=== PATIENT | female | born 1975 | race African-American/Black ===

== ENCOUNTER 2017-12-29 15:44 | Emergency (ER) | payer OTHER ==
--- NOTE | 2017-12-29 16:00 | PDOC ---
Rapid Medical Evaluation Time Seen by Provider: 12/29/17 15:58 Medical Evaluation: 12/29/17 15:58 I have performed a brief in-person evaluation of this patient. The patient presents with a chief complaint of: abdominal "bubbling, not really pain" x 1 week, intermittent, 3 episodes loose stools daily, denies vomiting, no meds taken Pertinent physical exam findings: well appearing, VSS I have ordered the following: nothing The patient will proceed to the ED for further evaluation. Discharge Disposition - Diagnosis Abdominal discomfort - Referrals - Patient Instructions - Post Discharge Activity
[2017-12-29 16:04] VITALS: BP 109/70; PULSE 73; TEMP 98; BMI 38.0
[2017-12-29] MEDS ORDERED: MAG HYDROX/AL HYDROX/SIMETH 30 ML UNIT-DOSE CUP PO ONE (16:40)
[2017-12-29] MEDS ORDERED: RANITIDINE HCL 150 MG TABLET (FP) PO ONE (16:41)
[2017-12-29] MEDS ORDERED: RANITIDINE HCL 150 MG TABLET (FP) ONE (16:45)
[2017-12-29] MEDS ORDERED: MAG HYDROX/AL HYDROX/SIMETH 30 ML UNIT-DOSE CUP ONE (16:45)
--- NOTE | 2017-12-29 16:45 | PDOC ---
History of Present Illness - General Chief Complaint: Diarrhea Stated Complaint: ABD PAIN, NAUSEA Time Seen by Provider: 12/29/17 15:58 History Source: Patient Exam Limitations: No Limitations - History of Present Illness Travel History: No Initial Comments: 12/29/17 16:40 42 yr female with c/o "bubbly stomach"after eating for 3 days no fever. pt has loose stool is eating and drinking well. no meds taken [employer] Timing/Duration: reports: intermittent Quality: reports: mild, cramping, fullness Abdominal Pain Onset Location: reports: generalized abdomen Past History - Past Medical History Allergies/Adverse Reactions: Allergies Allergy/AdvReac Type Severity Reaction Status Date / Time No Known Allergies Allergy Verified 12/29/17 15:58 Home Medications: Ambulatory Orders NK [No Known Home Medication] 12/29/17 COPD: No - Suicide/Smoking/Psychosocial Hx Smoking History: Never smoked Have you smoked in the past 12 months: No Information on smoking cessation initiated: No Hx Alcohol Use: No Drug/Substance Use Hx: No Substance Use Type: None Abd/GI Specific PMHX - Complaint Specific PMHX Colitis: No Diverticulitis: No Gall Bladder Disease: No GERD: No Hepatitis: No Irritable Bowel Synd (IBS): No Pancreatitis: No GI Ulcer Disease: No Review of Systems - Review of Systems Able to Perform ROS?: Yes Is the patient limited [place]ian proficient: No Constitutional: No: Symptoms Reported HEENTM: No: Symptoms Reported Respiratory: No: Symptoms reported Cardiac (ROS): No: Symptoms Reported ABD/GI: Yes: Symptoms Reported *Physical Exam - Vital Signs Last Vital Signs Temp Pulse Resp BP Pulse Ox 98 F 73 18 109/70 100 12/29/17 15:59 12/29/17 15:59 12/29/17 15:59 12/29/17 15:59 12/29/17 15:59 - Physical Exam General Appearance: Yes: Nourished, Appropriately Dressed HEENT: positive: EOMI, JASON Neck: positive: Supple. negative: Tender Respiratory/Chest: positive: Lungs Clear, Normal Breath Sounds. negative: Chest Tender Cardiovascular: positive: Regular Rhythm, Regular Rate Gastrointestinal/Abdominal: positive: Normal Bowel Sounds, Soft. negative: Tender Musculoskeletal: positive: Normal Inspection Extremity: positive: Normal Capillary Refill, Normal Inspection, Normal Range of Motion Integumentary: positive: Normal Color, Dry, Warm Neurologic: positive: sample supervisor II-XII NML intact, Fully Oriented, Alert, Normal Mood/ Affect Medical Decision Making - Medical Decision Making 12/29/17 16:43 cc: "bubbling in belly" for 3 days woth loose stool after eating no vomiting or nausea no fever, no back pain no urianry complaints pt denies pain to the abdomen, states it feels "gas like" non toxic stable vitals will give zantac and mylanta 12/29/17 16:54 pt is non toxic well appearing in no acute distress. pt to follow with her PMD or the gastroentrologist if symptoms worsen or persist *DC/Admit/Observation/Transfer Diagnosis at time of Disposition: Gas pain Gastritis Qualifiers: Gastritis type: unspecified gastritis Chronicity: acute Gastritis bleeding: without bleeding Qualified Code(s): K29.00 - Acute gastritis without bleeding - Discharge Dispostion Disposition: HOME Condition at time of disposition: Good - Referrals Referrals: ON STAFF,NOT [Primary Care Provider] - Aamir Simms MD [Staff Physician] - - Patient Instructions Additional Instructions: bland diet as tolerated white rice, toast applesauce, banana take mylanta as needed (over the counter) follow with the emergency service worker if symptoms worsen or persist Return if any worsening symptoms , bloody stool, vomiting or severe pain or any other concerns - Post Discharge Activity
== END 2017-12-29 17:02 | disposition home or self-care (01) ==
LOC: JERFT 15:44
DX: K29.00 Acute gastritis without bleeding (principal)
CPT/HCPCS: 99281-25

== ENCOUNTER 2019-05-21 17:56 | Emergency (ER) | payer BC, OTHER ==
[2019-05-21 18:07] VITALS: BP 112/72; PULSE 83; TEMP 98.3; BMI 37.8
--- NOTE | 2019-05-21 18:21 | PDOC ---
History of Present Illness - General Chief Complaint: Pain Stated Complaint: LEFT HIP/LEG PAIN Time Seen by Provider: 05/21/19 18:13 - History of Present Illness Initial Comments: 05/21/19 18:19 43-year-old female without comorbidities presents for evaluation of 2 weeks of atraumatic left lower extremity pain without systemic symptoms Past History - Past Medical History Allergies/Adverse Reactions: Allergies Allergy/AdvReac Type Severity Reaction Status Date / Time No Known Allergies Allergy Verified 05/21/19 18:06 Home Medications: Ambulatory Orders NK [No Known Home Medication] 12/29/17 COPD: No - Suicide/Smoking/Psychosocial Hx Smoking History: Never smoked Have you smoked in the past 12 months: No Hx Alcohol Use: No Drug/Substance Use Hx: No Substance Use Type: None Review of Systems - Review of Systems Constitutional: No: Fever Respiratory: No: Shortness of Breath Cardiac (ROS): No: Chest Pain Musculoskeletal: Yes: See HPI *Physical Exam - Vital Signs Last Vital Signs Temp Pulse Resp BP Pulse Ox 98.3 F 83 18 112/72 100 05/21/19 18:03 05/21/19 18:03 05/21/19 18:03 05/21/19 18:03 05/21/19 18:03 - Physical Exam Comments: 05/21/19 18:20 Left lower extremity skin color and temperature are normal. There is no edema. Thighs and calves are soft and nontender floppy without discomfort. No gross sensory motor deficits neurovascular intact. 5 out of 5 strength bilateral lower extremities. Mildly positive straight leg raise test on the left negative on the right. ED Treatment Course - RADIOLOGY Radiology Studies Ordered: Category Date Time Status DUPLEX VASCUL US-1 LEG [US] Stat Ultrasound 05/21/19 18:16 Ordered Medical Decision Making - Medical Decision Making 05/21/19 18:20 Patient has a concern for deep vein thrombosis. We'll get ultrasound Doppler which I suspect to be negative her examination is benign. This is most likely lumbar radicular symptoms. 05/21/19 19:38 doppler negative, tylenol and motrin for pain f/u with neuro surgery *DC/Admit/Observation/Transfer Diagnosis at time of Disposition: Lumbar radiculopathy - Discharge Dispostion Disposition: HOME Condition at time of disposition: Stable Decision to Admit order: No - Referrals Referrals: Feng Araujo MD, [facility] [Staff Physician] - - Patient Instructions Printed Discharge Instructions: Lumbar Radiculopathy, DI for Lumbar Radiculopathy Additional Instructions: Tylenol and Motrin as directed for pain. Follow-up with neurosurgery for further evaluation and treatment options. Follow-up without fail within next 2- 3 days. Return to the emergency room for worsening symptoms. - Post Discharge Activity
== END 2019-05-21 20:00 | disposition home or self-care (01) ==
LOC: JER 17:56 → JERFT 17:56
DX: M54.16 Radiculopathy, lumbar region (principal)
CPT/HCPCS: 93971-TC; 99282-25

== ENCOUNTER 2023-06-16 22:56 | Emergency (ER) | payer BC ==
[2023-06-16 23:02] VITALS: BP 139/87; PULSE 71; RESP 18; TEMP 97.9; BMI 40.4
[2023-06-17 00:23] LABS: BASO % 0.7 % (0-2.0); EOS % 1.4 % (0-4.5); HEMATOCRIT 31.8 % (32.4-45.2); HEMOGLOBIN 10.7 GM/dL (10.7-15.3); LYMPH % 40.2 % (8-40); MCH 28.4 pg (25.7-33.7); MCHC 33.6 g/dl (32.0-36.0); MEAN CELL VOLUME 84.4 fl (80-96); MEAN PLT VOLUME 6.4 fl (7.5-11.1); MONO % 5.4 % (3.8-10.2); NEUT % 52.3 % (42.8-82.8); PLATELET COUNT 382 10^3/uL (134-434); RBC 3.76 M/mm3 (3.60-5.2); WHITE BLOOD COUNT 7.4 K/mm3 (4.0-10.0)
[2023-06-17 00:45] LABS: CALCIUM 8.8 mg/dL (8.5-10.1); POTASSIUM 3.8 mmol/L (3.5-5.1)
[2023-06-17 00:46] LABS: ALBUMIN 3.4 g/dl (3.4-5.0); BLOOD UREA NITROGEN 6.2 mg/dL (7-18)
[2023-06-17 00:49] LABS: CREATININE 0.7 mg/dL (0.55-1.3)
[2023-06-17 00:50] LABS: TOT PROT 7.5 g/dl (6.4-8.2)
[2023-06-17 00:51] LABS: BILIRUBIN,TOTAL 0.3 mg/dL (0.2-1)
== END 2023-06-17 01:06 | disposition home or self-care (01) ==
LOC: JER 22:56
DX: R07.89 Other chest pain (principal)
CPT/HCPCS: 36415; 71046-TC-FY; 80053; 84484; 85025; 93005; 93010; 99285-25

== ENCOUNTER 2024-03-20 19:43 | Emergency (ER) | payer BC ==
[2024-03-20 20:00] VITALS: BP 118/83; PULSE 94; RESP 20; TEMP 98.3; BMI 40.2
[2024-03-20] MEDS ORDERED: ACETAMINOPHEN 500 MG TABLET (FP) ONE (21:33)
[2024-03-20] MEDS: ACETAMINOPHEN 500 MG TABLET (FP) PO ONE (21:40)
[2024-03-21] MEDS ORDERED: KETOROLAC TROMETHAMINE 30 MG/1 ML VIAL ONE (00:18)
[2024-03-21] MEDS: KETOROLAC TROMETHAMINE 30 MG/1 ML VIAL IM ONE (00:18)
== END 2024-03-21 01:32 | disposition home or self-care (01) ==
LOC: JER 19:43
PROC: 3E023GC Introduction of Other Therapeutic Substance into Muscle, Percutaneous Approach (ICD-10-PCS; principal; 2024-03-21)
DX: M25.561 Pain in right knee (principal); M79.651 Pain in right thigh; W01.0XXA Fall on same level from slipping, tripping and stumbling without subsequent striking against object, initial encounter
CPT/HCPCS: 73562-TC-RT-FY; 93971-TC; 99284-25